=== PATIENT | male | born 1975 | race Native Hawaiian/Other Pacific Islander ===

== ENCOUNTER 2020-09-09 19:20 | Observation (INO) ==
[2020-09-09] MEDS ORDERED: ONDANSETRON 4 MG/2 ML VIAL IV ONE (19:45)
[2020-09-09] MEDS ORDERED: 0.9 % SODIUM CHLORIDE 1,000 ML IV ONE ×2 (19:45→19:46)
[2020-09-09] MEDS ORDERED: KETOROLAC 15 MG/ML VIAL IV ONE (19:45)
[2020-09-09] MEDS: LORazepam 1 MG TABLET PO PRN ×2 (20:09→23:45)
[2020-09-09 20:33] LABS: Basophils # (Auto) 0.03 K/mcL (0.00-0.20); Basophils % (Auto) 0.2 % (0.0-2.0); Eosinophils # (Auto) 0 K/mcL (0.00-0.70); Eosinophils % (Auto) 0 % (0.0-7.0); Hemoglobin 16.4 g/dL (13.5-16.5); Lymphocytes # (Auto) 0.66 K/mcL (1.50-4.80); Lymphocytes % (Auto) 3.7 % (15.0-49.0); Mean Cell Volume 86.9 fL (80.0-100.0); Mean Corpuscular HGB Conc 34.9 g/dL (31.0-36.0); Mean Platelet Volume 9.3 fL (7.4-10.4); Monocytes # (Auto) 0.51 K/mcL (0.10-0.90); Monocytes % (Auto) 2.9 % (1.0-12.0); Neutrophils % (Auto) 93.2 % (38.0-78.0); Platelet Count 314 K/mcL (140-440); RBC 5.41 M/mcL (4.50-5.90); Red Cell Distribution Width 15.1 % (11.5-14.5); WBC 17.6 K/mcL (4.5-11.0)
[2020-09-09 20:55] LABS: Alcohol, Blood < 10.0 mg/dL; Alcohol,Blood < 0.010 gm/dL (<0.010)
[2020-09-09 21:02] LABS: ALT/SGPT 40 U/L (<40); AST/SGOT 61 U/L (<40); Albumin 4.6 gm/dL (3.2-5.2); Albumin/Globulin Ratio 1.2 (1.0-2.3); Alkaline Phosphatase 118 U/L (39-117); Bilirubin,Total 1.1 mg/dL (0.1-1.0); Blood Urea Nitrogen 13 mg/dL (6-20); Calcium 9.7 mg/dL (8.6-10.4); Carbon Dioxide 17 mmol/L (22-30); Chloride 94 mmol/L (96-108); Globulin 3.9 gm/dL (2.2-3.7); Glomerular Filtration Rate 102; Glucose 126 mg/dL (70-105)
--- NOTE | 2020-09-09 23:21 | Emergency Department Note ---
HPI General Chief complaint: Alcohol Stated complaint: alcohol Time Seen by Provider: 09/09/20 19:45 Source: patient Mode of arrival: ambulatory Limitations: no limitations History of Present Illness HPI Narrative: Narrative: Patient is a 45-year-old male with history of alcohol abuse who presents with chief complaint of alcohol withdrawal. Patient states that he typically drinks approximately 1/5 of alcohol daily, typically vodka, and had his last drink around 4 AM. Ever since then he has been started to have nausea and vomiting. He has been unable to keep any fluids down, and he thinks he is becoming dehydrated. He came in here for further evaluation due to concern for alcohol withdrawal and otherwise denies no significant symptoms such as seizure-like activity, tremors, fever, headache, cough, shortness of breath, chest pain, abdominal pain, changes in bowel movements or urinary symptoms Related Data Home Medications Medication Instructions Recorded Confirmed No Known Home Meds 05/18/19 05/18/19 Allergies Allergy/AdvReac Type Severity Reaction Status Date / Time No Known Drug Allergies Allergy Unverified 05/18/19 16:44 Review of Systems ROS ROS Narrative: Narrative: All systems ED: reviewed and negative except as stated. [facility] Narrative Patient History Narrative: Narrative: Medical/Surgical/Family History All Active Problems (Updated 09/09/20 @ 23:38 by Trev Araiza MD) Nausea & vomiting (Acute) Leukocytosis (Acute) Dehydration (Acute) Alcohol intoxication (Acute) Elevated liver enzymes (Acute) Alcohol withdrawal (Acute) Alcohol abuse (Acute) Tachycardia (Acute) Social History Smoking Status: Current every day smoker Exam Narrative Narrative: Narrative: Patient is laying in bed, talking normally and appropriately. He does not appear to be in acute distress does appear to feel unwell. General Limitations: no limitations Head Head: Present atraumatic and normocephalic Eye Eye: Present normal appearance, PERRL and EOMI; Absent scleral icterus and conjunctival injection ENT ENT: Present normal oropharynx and mucous membranes moist Neck Neck: Present full ROM and trachea midline; Absent tenderness and lymphadenopathy Chest Chest: Present symmetric chest wall rise Respiratory Respiratory: Present normal lung sounds bilaterally; Absent respiratory distress, rales/crackles, wheezes, stridor and accessory muscle use Cardiovascular Cardiovascular: Present regular rate and normal rhythm; Absent systolic murmur and diastolic murmur Adbominal Abdominal: Present soft; Absent tenderness, guarding, rebound, rigidity and mass Extremities Extremities: Absent pedal edema, pretibial edema and calf tenderness Back Back: Absent CVA tenderness (R), CVA tenderness (L) and spinous process tenderness Neurological Neurological: Present alert and oriented X3 Psychiatric Psychiatric: Present normal affect and normal mood Skin Skin: Present warm (WNL) and dry Course Vital Signs Vital signs: Vital Signs Temperature 99.9 F H 09/09/20 19:20 Pulse Rate 138 H 09/09/20 19:20 Respiratory Rate 20 09/09/20 19:20 Blood Pressure 181/116 09/09/20 19:20 Pulse Oximetry (%) 99 09/09/20 19:20 Temperature 99.9 F H 09/09/20 19:20 Pulse Rate 109 H 09/09/20 23:01 Respiratory Rate 17 09/09/20 23:39 Blood Pressure 155/86 09/09/20 23:01 Pulse Oximetry (%) 97 09/09/20 23:01 [facility] MDM Narrative Medical decision making narrative: Narrative: Patient is a 45-year-old male who presented with chief complaint of alcohol withdrawal. Patient was tachycardic upon arrival though blood pressures were stable. Rate initially in the 130s, no evidence of tremors or seizure activity. Abdominal exam is benign with no rebound or guarding. I have low suspicion for acute surgical abdomen. Blood work showed a completely normal alcohol level, consistent with the patient's story. Elevated white blood count likely secondary to the vomiting throughout the day and not feeling well. Overall I have low suspicion for severe sepsis. Patient is feeling better after IV fluid hydration and Zofran, however after 2 L of IV fluids he is still persistently tachycardic in the 115-120 range. Because of this I do feel that he would benefit from admission the hospital for closer monitoring to ensure that he is vital signs stabilize and he does not have any rebound vomiting and or further development of his alcohol withdrawal symptoms. I discussed case the hospitalist, who after evaluating the patient agreed to the plan of admission. He did request sepsis orders of urine, chest x-ray, lactic acid, and procalcitonin which we will draw prior to the admission. Patient is agreeable to the plan at this time has no further concerns or questions. Currently resting in bed comfortably. Lab Data Result diagrams: 09/09/20 19:57 09/09/20 19:57 Labs: Lab Results 09/09/20 09/09/20 09/09/20 Range/Units 19:57 19:57 19:57 WBC 17.6 H (4.5-11.0) K/mcL RBC 5.41 (4.50-5.90) M/mcL Hgb 16.4 (13.5-16.5) g/dL Hct 47.0 (41.0-55.0) % MCV 86.9 (80.0-100.0) fL MCH 30.3 (26.0-34.0) pg MCHC 34.9 (31.0-36.0) g/dL RDW 15.1 H (11.5-14.5) % Plt Count 314 (140-440) K/mcL MPV 9.3 (7.4-10.4) fL Neut % (Auto) 93.2 H (38.0-78.0) % Lymph % (Auto) 3.7 L (15.0-49.0) % Todd % (Auto) 2.9 (1.0-12.0) % Eos % (Auto) 0 (0.0-7.0) % Baso % (Auto) 0.2 (0.0-2.0) % Lymph # (Auto) 0.66 L (1.50-4.80) K/mcL Todd # (Auto) 0.51 (0.10-0.90) K/mcL Eos # (Auto) 0 (0.00-0.70) K/mcL Baso # (Auto) 0.03 (0.00-0.20) K/mcL Absolute Neutrophils 16.44 H (1.80-8.00) K/mcL Sodium 139 (133-145) mmol/L Potassium 3.8 (3.3-5.1) mmol/L Chloride 94 L (96-108) mmol/L Carbon Dioxide 17 L (22-30) mmol/L Anion Gap 28.0 H (8.0-16.0) BUN 13 (6-20) mg/dL Creatinine 0.9 (0.7-1.2) mg/dL GFR Calculation 102 Glucose 126 H (70-105) mg/dL Calcium 9.7 (8.6-10.4) mg/dL Total Bilirubin 1.1 H (0.1-1.0) mg/dL AST 61 H (<40) U/L ALT 40 H (<40) U/L Alkaline Phosphatase 118 H (39-117) U/L Total Protein 8.5 H (5.9-8.4) gm/dL Albumin 4.6 (3.2-5.2) gm/dL Globulin 3.9 H (2.2-3.7) gm/dL Albumin/Globulin Ratio 1.2 (1.0-2.3) Lipase 34 (7-60) U/L Ethyl Alcohol < 0.010 (<0.010) gm/dL CC TIME Critical Care Time Critical Care Time: Yes Attestation: Upon my evaluation, this patient had a high probability of imminent or life-threatening deterioration due to alcohol withdrawal and tachycardia, which required my direct attention, intervention, and personal management. I have personally provided _35_ minutes of critical care time exclusive of time spent on separately billable procedures. Time includes review of laboratory data, radiology results, discussion with consultants, and monitoring for potential decompensation. Interventions were performed as documented above. Discharge Plan Patient/Caregiver Discharge Instructions Pt seen by IT INFRASTRUCTURE SPECIALIST/PA only: No Clinical Impression: Alcohol withdrawal, Alcohol abuse, Tachycardia Patient Disposition: Xfer As Outpt/Obs ([facility]) Follow up with: No,PCP [Primary Care Provider] - Prescriptions: No Action No Known Home Meds RF: 0
[2020-09-09] MEDS ORDERED: ZOLPIDEM 5 MG TABLET PO PRN (23:33)
[2020-09-09] MEDS ORDERED: ONDANSETRON 4 MG/2 ML VIAL IV PRN (23:33)
[2020-09-09] MEDS ORDERED: PROCHLORPERAZINE 10 MG/2 ML VIAL IV PRN (23:33)
[2020-09-09] MEDS ORDERED: ACETAMINOPHEN 325 MG TABLET PO PRN (23:33)
[2020-09-09] MEDS ORDERED: PROMETHAZINE 25 MG/ML VIAL IV PRN (23:33)
[2020-09-09] MEDS ORDERED: morphine 4 MG/ML VIAL IV PRN (23:33)
--- NOTE | 2020-09-09 23:41 | Internal Med History&Physical ---
HPI History of Present Illness Patient information: Note initiated : 09/09/20 at 11:39 pm Service Date, if different from initiated Date: [] Patient: Bobby Shepherd a 45 y/o M admitted on for alcohol. Chief Complaint: [nausea vomiting] History of present illness: Mr. Shepherd is a 45 year old M history of alcoholism presenting with 1 day history of nausea and vomiting. Patient has been drinking heavily for the past 3 months. His alcohol of choice is vodka. He would have consumed 1/5 of vodka per day with last drink of 5 AM this morning. This morning he woke up with severe nausea and nonbloody nonbilious vomiting. He guesstimate that he has vomited 20 episode since this morning. He is also complaining of chest pain in the cramping nature is together with the vomiting. He would also experience subjective fever chills and diaphoresis. He denies any cough or sputum productions or wheezings. He denies any urinary symptoms such as dysuria or change in urinary frequency or urgency. He admits of mucus using marijuana but last smoked 3 to 4 days ago. He denies any other drug use. Due to his symptoms, he presented to our ED earlier this evening for symptoms control's. He was found to be tachycardic with heart rate in the 130s. Rest of the vital signs within normal limits afebrile. Labs significant for nondetectable serum alcohol levels. Leukocytosis with WBC 17. After 2 L of NS bolus given in the ED, heart rate down to the 1 teens, sinus. CIWA score single-digit. Constitutional Constitutional: Absent chills, excessive sweating, fatigue, fever(s) and weakness EENT Eyes: Absent blurry vision, change in vision, loss of vision and other visual disturbances Ears: Absent decreased hearing and tinnitus Nose, mouth and throat: Absent abnormal hearing, dry mouth, headache(s), nasal congestion and sore throat Cardiovascular Cardiovascular: Present chest pain; Absent edema, irregular heart rhythm and palpatations Respiratory Respiratory: Absent cough, dyspnea and wheezing Gastrointestinal Gastrointestinal: Present nausea and vomiting; Absent abdominal pain, constipation and diarrhea Musculoskeletal Musculoskeletal: Absent back pain, deformity, limited range of motion, muscle cramps, muscle weakness and numbness Integumentary Integumentary: Absent lesions, rash and wounds Neurological Neurological: Absent focal weakness, headache(s) and numbness Psychiatric Psychiatric: Absent anxiety, depression and hallucinations PFSH PFSH All Active Problems (Updated 09/09/20 @ 23:38 by Trev Araiza MD) Nausea & vomiting (Acute) Leukocytosis (Acute) Dehydration (Acute) Alcohol intoxication (Acute) Elevated liver enzymes (Acute) Alcohol withdrawal (Acute) Alcohol abuse (Acute) Tachycardia (Acute) MEDS/ALLERGIES Home Medications and Allergies Home Medications Medication Instructions Recorded Confirmed Type No Known Home Meds 05/18/19 05/18/19 History Allergies Allergy/AdvReac Type Severity Reaction Status Date / Time No Known Drug Allergies Allergy Unverified 05/18/19 16:44 EXAM Constitutional Vitals: Temp Pulse Resp BP Pulse Ox 37.7 C H 109 H 17 155/86 97 09/09/20 19:20 09/09/20 23:01 09/09/20 23:39 09/09/20 23:01 09/09/20 23:01 General appearance: cooperative and no acute distress Head Head exam: Present atraumatic and normocephalic Eye Eye exam: Present EOMI and PERRL ENT ENT exam: Present mucous membranes moist, normal exam and normal external ear exam Neck Neck exam: Present normal inspection; Absent lymphadenopathy, tenderness and thyromegaly Respiratory Respiratory exam: Absent accessory muscle use, respiratory distress and wheezes Cardiovascular Cardiovascular exam: Present tachycardia; Absent JVD GI/Abdominal GI/Abdominal exam: Present normal bowel sounds and soft; Absent organomegaly and tenderness Rectal Rectal exam: Present deferred Extremities Exam Extremities exam: Present full ROM, normal capillary refill and normal inspection; Absent tenderness Neurological Exam Neurological exam: Present alert, CN II-XII intact and oriented X3; Absent motor sensory deficit Psychiatric Psychiatric exam: Present normal affect and normal mood; Absent anxious and depressed Skin Skin exam: Present dry and intact DATA Data Completed and Pending Labs: Labs from last 24 hours 09/09/20 09/09/20 09/09/20 19:57 19:57 19:57 WBC 17.6 H RBC 5.41 Hgb 16.4 Hct 47.0 MCV 86.9 MCH 30.3 MCHC 34.9 RDW 15.1 H Plt Count 314 MPV 9.3 Neut % (Auto) 93.2 H Lymph % (Auto) 3.7 L [place] % (Auto) 2.9 Eos % (Auto) 0 Baso % (Auto) 0.2 Lymph # (Auto) 0.66 L [place] # (Auto) 0.51 Eos # (Auto) 0 Baso # (Auto) 0.03 Absolute Neutrophils 16.44 H Sodium 139 Potassium 3.8 Chloride 94 L Carbon Dioxide 17 L Anion Gap 28.0 H BUN 13 Creatinine 0.9 GFR Calculation 102 Glucose 126 H Calcium 9.7 Total Bilirubin 1.1 H AST 61 H ALT 40 H Alkaline Phosphatase 118 H Total Protein 8.5 H Albumin 4.6 Globulin 3.9 H Albumin/Globulin Ratio 1.2 Lipase 34 Ethyl Alcohol < 0.010 A/P Assessment and plan (1) Nausea & vomiting: Status: Acute (2) Leukocytosis: Status: Acute (3) Alcohol abuse: Status: Acute (4) Tachycardia: Status: Acute Narrative A/P Narrative: Assessment and Plans: 1. Tachycardia: Likely secondary to nausea and vomiting secondary to alcohol abuse Observation med surg telemetry s/p 2L NS bolus given in the ED, to be followed by NS@125cc/hr TSH w/ reflexive free T4 Zofran/Compazine/Phenergan IV PRN nausea vomiting Ativan PO PRN anxiety/withdrawal symptoms 2. Nausea vomiting: Zofran/Compazine/Phenergan IV PRN nausea vomiting s/p 2L NS bolus given in the ED, to be followed by NS@125cc/hr Okay to feed patient with regular diet 3. Leukocytosis: DDx. stress from alcoholism and nausea/vomiting vs infectious Procalcitonin level Lactic acid level Blood culture CXR UA with reflexive free T4 s/p 2L NS bolus given in the ED, to be followed by NS@125cc/hr cbc w/ auto diff in the morning to trend WBC 4. Alcohol abuse: Zofran/Compazine/Phenergan IV PRN nausea vomiting Ativan PO PRN anxiety/withdrawal symptoms GI ppx: not currently indicated DVT ppx: SCDs Code status: Full Prognosis: stable Disposition: observation med surg telemetry Time Spent With Patient Time: Total time spent is greater than 50% in coordination of care (as documented) at patient's floor/unit and/or counseling patient: Total time spent with greater than 50% in coordination of care (as documented) at patient's floor/unit and/or counseling patient:: 15 - 24 minutes
[2020-09-09] MEDS ORDERED: 0.9 % SODIUM CHLORIDE 1,000 ML IV SCH (23:45)
[2020-09-10] MEDS ORDERED: morphine 4 MG/ML VIAL IV PRN (00:16)
[2020-09-10] MEDS ORDERED: LORazepam 1 MG TABLET PO PRN (00:16)
[2020-09-10] MEDS ORDERED: ZOLPIDEM 5 MG TABLET PO PRN (00:16)
[2020-09-10] MEDS ORDERED: PROMETHAZINE 25 MG/ML VIAL IV PRN (00:16)
[2020-09-10] MEDS ORDERED: PROCHLORPERAZINE 10 MG/2 ML VIAL IV PRN (00:16)
[2020-09-10] MEDS ORDERED: ONDANSETRON 4 MG/2 ML VIAL IV PRN (00:16)
[2020-09-10] MEDS ORDERED: ACETAMINOPHEN 325 MG TABLET PO PRN (00:16)
[2020-09-10] MEDS: 0.9 % SODIUM CHLORIDE 1,000 ML IV SCH ×3 (00:42→08:54)
[2020-09-10 00:46] LABS: Appearance,Urine CLEAR (Clear); Bilirubin,Urine Negative (Negative); Color,Urine YELLOW; Culture Indicated,Urine No; Glucose,Urine (UA) Negative (Negative); Ketones,Urine 80 mg/dL (Negative); Leukocyte Esterase,Urine Negative /ug (Negative); Mucus,Urine MOD /hpf; Nitrate,Urine Negative (Negative); Protein,Urine 100 mg/dL (Negative); Specific Gravity,Urine 1.028 (1.000-1.035); Urine Blood 0.03 mg/dL (Negative); Urine RBC 0 /hpf (0-3); Urine Squamous Epithelial Cell 0 /hpf (0-4); Urine WBC 0 /hpf (0-4); Urobilinogen,Urine Negative
[2020-09-10] MEDS ORDERED: ACETAMINOPHEN 325 MG TABLET PO ONE (04:12)
[2020-09-10] MEDS ORDERED: 0.9 % SODIUM CHLORIDE 10 ML SYRINGE IV SCH ×2 (06:00)
[2020-09-10 07:06] LABS: ALT/SGPT 28 U/L (<40); AST/SGOT 41 U/L (<40); Albumin 3.7 gm/dL (3.2-5.2); Albumin/Globulin Ratio 1.3 (1.0-2.3); Alkaline Phosphatase 91 U/L (39-117); Bilirubin,Total 1.3 mg/dL (0.1-1.0); Blood Urea Nitrogen 12 mg/dL (6-20); Calcium 8.4 mg/dL (8.6-10.4); Carbon Dioxide 21 mmol/L (22-30); Chloride 100 mmol/L (96-108); Globulin 2.8 gm/dL (2.2-3.7); Glomerular Filtration Rate 102; Glucose 87 mg/dL (70-105)
[2020-09-10 07:27] LABS: Basophils # (Auto) 0.03 K/mcL (0.00-0.20); Basophils % (Auto) 0.3 % (0.0-2.0); Eosinophils # (Auto) 0.02 K/mcL (0.00-0.70); Eosinophils % (Auto) 0.2 % (0.0-7.0); Hematocrit 40.1 % (41.0-55.0); Hemoglobin 13.6 g/dL (13.5-16.5); Lymphocytes # (Auto) 2.63 K/mcL (1.50-4.80); Lymphocytes % (Auto) 21.9 % (15.0-49.0); Mean Cell Volume 87.6 fL (80.0-100.0); Mean Corpuscular HGB Conc 33.9 g/dL (31.0-36.0); Mean Platelet Volume 9.2 fL (7.4-10.4); Monocytes # (Auto) 0.95 K/mcL (0.10-0.90); Monocytes % (Auto) 7.9 % (1.0-12.0); Neutrophils % (Auto) 69.7 % (38.0-78.0); Platelet Count 246 K/mcL (140-440); RBC 4.58 M/mcL (4.50-5.90); Red Cell Distribution Width 14.9 % (11.5-14.5)
--- NOTE | 2020-09-10 08:36 | XRay Report ---
HISTORY: Elevated white blood cell count, alcohol FINDINGS: The lungs are clear and well expanded. The heart size, mediastinum, jessica and pleura are normal. Mild arthritis is present in both left and right acromioclavicular joint. IMPRESSION: Normal exam Interpreted and Authenticated by: Isaiah Wilson 09/10/20
--- NOTE | 2020-09-10 08:43 | Discharge Summary ---
Discharge Provider Provider Patient information: Note initiated : 09/10/20 at 8:40 am Service Date, if different from initiated Date: [] Patient: Bobby Shepherd 45 y/o M admitted on 09/10/20 for alcohol. Chief Complaint: [nausea vomiting tachycardia] Date of admission: 09/10/20 00:05 Discharge date: 09/10/20 Primary care physician: PCP No Consults: 09/09/20 Consult to Physician [CONS] Stat Comment: Consulting Provider: Trev Araiza Reason For Exam: Physician to Consult Discharge Meds Discharge Medications Home Medications ondansetron HCl [Zofran] 4 mg PO Q8H PRN #10 tab 09/10/20 [Rx Last Taken Unknown] COURSE Hospital Course Hospital course: Patient was admitted for overnight observations on September 09, 2020 for symptomatic nausea vomiting and tachycardia secondary to alcohol abuse. IV fluid and antiemetics were administered and patient symptoms improved and resolved overnight and he reached medical stability the next morning. Decision was thus made to discharge him home with 2-week PCP follow-up arranged. Rx oral Zofran sent to pharmacy. All questions answered prior to patient being physically discharged. Discharge diagnosis: nausea vomiting from alcohol abuse Time Spent with Patient Time attestation: Total time spent providing and/or coordinating discharge services: Patient was admitted for overnight observations on September 09, 2020 for symptomatic nausea vomiting and tachycardia secondary to alcohol abuse. IV fluid and antiemetics were administered and patient symptoms improved and resolved overnight and he reached medical stability the next morning. Decision was thus made to discharge him home with 2-week PCP follow-up arranged. Rx oral Zofran sent to pharmacy. All questions answered prior to patient being physically discharged. EXAM Constitutional Vitals: Temp Pulse Resp BP Pulse Ox 36.8 C 81 16 151/85 96 09/10/20 08:00 09/10/20 08:00 09/10/20 08:00 09/10/20 08:00 09/10/20 08:00 General appearance: cooperative and no acute distress Head Head exam: Present atraumatic and normocephalic Eye Eye exam: Present EOMI and PERRL ENT ENT exam: Present mucous membranes moist, normal exam and normal external ear exam Neck Neck exam: Present normal inspection; Absent lymphadenopathy, tenderness and thyromegaly Respiratory Respiratory exam: Absent accessory muscle use, respiratory distress and wheezes Cardiovascular Cardiovascular exam: Present normal rate and rhythm; Absent JVD GI/Abdominal GI/Abdominal exam: Present normal bowel sounds and soft; Absent organomegaly and tenderness Rectal Rectal exam: Present deferred Extremities Exam Extremities exam: Present full ROM, normal capillary refill and normal inspection; Absent tenderness Neurological Exam Neurological exam: Present alert, CN II-XII intact and oriented X3; Absent motor sensory deficit Psychiatric Psychiatric exam: Present normal affect and normal mood; Absent anxious and depressed Skin Skin exam: Present dry and intact Discharge Data Data Completed and Pending Labs on day of discharge: Labs from last 24 hours 09/10/20 09/10/20 09/10/20 05:29 05:29 00:22 WBC 12.0 H RBC 4.58 Hgb 13.6 Hct 40.1 L MCV 87.6 MCH 29.7 MCHC 33.9 RDW 14.9 H Plt Count 246 MPV 9.2 Neut % (Auto) 69.7 Lymph % (Auto) 21.9 Andrew % (Auto) 7.9 Eos % (Auto) 0.2 Baso % (Auto) 0.3 Lymph # (Auto) 2.63 Andrew # (Auto) 0.95 H Eos # (Auto) 0.02 Baso # (Auto) 0.03 Absolute Neutrophils 8.37 H VBG Lactic Acid Sodium 135 Potassium 3.5 Chloride 100 Carbon Dioxide 21 L Anion Gap 14.0 BUN 12 Creatinine 0.9 GFR Calculation 102 Glucose 87 Calcium 8.4 L Total Bilirubin 1.3 H AST 41 H ALT 28 Alkaline Phosphatase 91 Total Protein 6.5 Albumin 3.7 Globulin 2.8 Albumin/Globulin Ratio 1.3 Lipase Procalcitonin TSH 0.77 Urine Color Urine Appearance Urine pH Ur Specific [place] Urine Protein Urine Glucose (UA) Urine Ketones Urine Occult Blood Urine Nitrate Urine Bilirubin Urine Urobilinogen Ur Leukocyte Esterase Urine RBC Urine WBC Ur Squamous Epith Cells Urine Bacteria Urine Mucus Ur Culture Indicated? Ethyl Alcohol 09/09/20 09/09/20 09/09/20 23:54 23:53 23:52 WBC RBC Hgb Hct MCV MCH MCHC RDW Plt Count MPV Neut % (Auto) Lymph % (Auto) Andrew % (Auto) Eos % (Auto) Baso % (Auto) Lymph # (Auto) Andrew # (Auto) Eos # (Auto) Baso # (Auto) Absolute Neutrophils VBG Lactic Acid 1.3 Sodium Potassium Chloride Carbon Dioxide Anion Gap BUN Creatinine GFR Calculation Glucose Calcium Total Bilirubin AST ALT Alkaline Phosphatase Total Protein Albumin Globulin Albumin/Globulin Ratio Lipase Procalcitonin 0.07 TSH Urine Color Yellow Urine Appearance Clear Urine pH 6.0 Ur Specific [place] 1.028 Urine Protein 100 A Urine Glucose (UA) Negative Urine Ketones 80 A Urine Occult Blood 0.03 Urine Nitrate Negative Urine Bilirubin Negative Urine Urobilinogen Negative Ur Leukocyte Esterase Negative Urine RBC 0 Urine WBC 0 Ur Squamous Epith Cells 0 Urine Bacteria None Urine Mucus Mod A Ur Culture Indicated? No Ethyl Alcohol 09/09/20 09/09/20 09/09/20 19:57 19:57 19:57 WBC 17.6 H RBC 5.41 Hgb 16.4 Hct 47.0 MCV 86.9 MCH 30.3 MCHC 34.9 RDW 15.1 H Plt Count 314 MPV 9.3 Neut % (Auto) 93.2 H Lymph % (Auto) 3.7 L Andrew % (Auto) 2.9 Eos % (Auto) 0 Baso % (Auto) 0.2 Lymph # (Auto) 0.66 L Andrew # (Auto) 0.51 Eos # (Auto) 0 Baso # (Auto) 0.03 Absolute Neutrophils 16.44 H VBG Lactic Acid Sodium 139 Potassium 3.8 Chloride 94 L Carbon Dioxide 17 L Anion Gap 28.0 H BUN 13 Creatinine 0.9 GFR Calculation 102 Glucose 126 H Calcium 9.7 Total Bilirubin 1.1 H AST 61 H ALT 40 H Alkaline Phosphatase 118 H Total Protein 8.5 H Albumin 4.6 Globulin 3.9 H Albumin/Globulin Ratio 1.2 Lipase 34 Procalcitonin TSH Urine Color Urine Appearance Urine pH Ur Specific [place] Urine Protein Urine Glucose (UA) Urine Ketones Urine Occult Blood Urine Nitrate Urine Bilirubin Urine Urobilinogen Ur Leukocyte Esterase Urine RBC Urine WBC Ur Squamous Epith Cells Urine Bacteria Urine Mucus Ur Culture Indicated? Ethyl Alcohol < 0.010 Discharge Plan Patient/Caregiver Discharge Instructions Activity: increase activity as tolerated Diet: Regular Diet Prescriptions: New ondansetron HCl [Zofran] 4 mg tablet 4 mg PO Q8H PRN (Reason: nausea and vomiting) Qty: 10 RF: 0 Follow Up Plan Follow up with: Patricia,PCP [Primary Care Provider] - 09/24/20 Patient Disposition: Home, Self-Care Hospital Course: Patient was admitted for overnight observations on September 09, 2020 for symptomatic nausea vomiting and tachycardia secondary to alcohol abuse. IV fluid and antiemetics were administered and patient symptoms improved and resolved overnight and he reached medical stability the next morning. Decision was thus made to discharge him home with 2-week PCP follow-up arranged. Rx oral Zofran sent to pharmacy. All questions answered prior to patient being physically discharged. Rehab Potential: Good I certify that the patient requires SNF services: No Overall status at discharge: patient is back to baseline Discharge Orders: Discharge Order (Routine); Ordered 09/10/20 Ordered By: Trev Araiza
[2020-09-10] MEDS ORDERED: DOCUSATE SODIUM 100 MG CAPSULE PO SCH ×2 (09:00)
[2020-09-10] MEDS ORDERED: SENNOSIDES 1 TABLET PO SCH ×2 (21:00)
--- NOTE | 2020-09-11 12:23 | EKG ---
[facility] Test Date: 2020-09-09 Pat Name: Bobby Shepherd Department: ED Room: Gender: Male It Audit Manager: AYAD : 1975 Requested By: Harshil Morel Order Number: [id number] Reading MD: David Swan M.D. Measurements Intervals [place] Rate: 126 P: 67 NV: 144 QRS: -4 QRSD: 84 T: 47 QT: 316 QTc: 458 Interpretive Statements SINUS TACHYCARDIA NO PRIOR TRACING FOR COMPARISON OTHERWISE NORMAL ECG Electronically Signed On 09-11-2020 12:23:13 PDT by David Swan M.D. /[id number]
== END 2020-09-10 11:30 | disposition home or self-care (01) ==
LOC: ED 19:20 → MEDSUR 19:20
PROVIDERS: ADMIT Internal Medicine; ATTEND Internal Medicine